=== PATIENT | female | born 1990 | race Caucasian/White ===

== ENCOUNTER 2018-03-20 13:29 | Emergency (ER) | payer MEDICAID ==
[~2018-03-20] VITALS: Ht 170.2 cm; Wt 72.9 kg
[~2018-03-20 13:29] MED LIST: ONDA8TAB9 PO
[2018-03-20] MEDS ORDERED: ketorolac trometh. 30mg/ml inj. IM ONE (14:10)
[2018-03-20 14:18] LABS: CLARITY,URINE SLIGHTLY CLOUDY (Clear); COLOR,URINE YELLOW (Yellow); GLUCOSE, URINE NEGATIVE (Neg); KETONES,URINE NEGATIVE (Neg); LEUKOCYTE ESTERASE ,URINE SMALL (Neg); NITRITES, URINE NEGATIVE (Neg); OCCULT BLOOD,URINE NEGATIVE (Neg); PROTEIN,URINE NEGATIVE (Neg); UROBILINOGEN,URINE 0.2 E.U/dL (0.2-1.0)
[2018-03-20 14:20] LABS: UA COLLECTION TYPE CLN CATCH MIDSTREAM; URINE HCG NEGATIVE (NEG)
[2018-03-20 14:25] LABS: BACTERIA,URINE FEW /HPF (Neg); RBC,URINE 0-2 /HPF (0-2); WBC,URINE 0-4 /HPF (0-4)
[2018-03-20 14:26] LABS: MUCUS STRANDS MODERATE /LPF (Neg); SQUAMOUS EPITHELIAL CELL,UR MODERATE /LPF (FEW)
[2018-03-20] MEDS ORDERED: CYCL-1 PO (15:41)
[2018-03-20 15:53] VITALS: BP 125/75
== END 2018-03-20 15:55 | disposition home or self-care (01) ==
LOC: ER 13:30
DX: M53.3 Sacrococcygeal disorders, not elsewhere classified (principal); M62.830 Muscle spasm of back; M54.5 Low back pain; M54.6 Pain in thoracic spine; Z87.442 Personal history of urinary calculi; Z88.2 Allergy status to sulfonamides; Z88.6 Allergy status to analgesic agent; Z88.8 Allergy status to other drugs, medicaments and biological substances; W01.190A Fall on same level from slipping, tripping and stumbling with subsequent striking against furniture, initial encounter; Y93.89 Activity, other specified; Y92.89 Other specified places as the place of occurrence of the external cause; Y99.9 Unspecified external cause status
CPT/HCPCS: 72100; 81001; 81025; 87088; 96372; 99285; J1885

== ENCOUNTER 2019-01-12 21:19 | Emergency (ER) | payer MEDICAID ==
[~2019-01-12] VITALS: Ht 170.2 cm; Wt 78.2 kg
[~2019-01-12 21:19] MED LIST changes: +CYCL-1 PO
[2019-01-12 22:18] VITALS: BP 126/78
[2019-01-12] MEDS ORDERED: acetaminophen 325mg tablet PO ONE (23:00)
[2019-01-12] MEDS ORDERED: ibuprofen tablet 400 MG TABLET PO ONE (23:00)
== END 2019-01-12 23:34 | disposition home or self-care (01) ==
LOC: ER 21:20
DX: M25.531 Pain in right wrist (principal); F41.9 Anxiety disorder, unspecified; Z87.442 Personal history of urinary calculi; Z88.2 Allergy status to sulfonamides; Z88.8 Allergy status to other drugs, medicaments and biological substances; Z79.899 Other long term (current) drug therapy
CPT/HCPCS: 29125; 73110; 99283

== ENCOUNTER 2020-12-15 11:35 | Day surgery (SDC) | payer MEDICAID ==
[2020-12-08 16:12] LABS: CLARITY,URINE SLIGHTLY CLOUDY (Clear); COLOR,URINE YELLOW (Yellow); GLUCOSE, URINE NEGATIVE (Neg); KETONES,URINE NEGATIVE (Neg); LEUKOCYTE ESTERASE ,URINE NEGATIVE (Neg); NITRITES, URINE NEGATIVE (Neg); OCCULT BLOOD,URINE TRACE-INTACT (Neg); PROTEIN,URINE NEGATIVE (Neg); UROBILINOGEN,URINE 0.2 E.U/dL (0.2-1.0)
[2020-12-08 16:18] LABS: MUCUS STRANDS MODERATE /LPF (Neg); SQUAMOUS EPITHELIAL CELL,UR MANY /LPF (FEW); UA COLLECTION TYPE CLN CATCH MIDSTREAM
[2020-12-08 16:19] LABS: BASOPHILS # (AUTO) 0.1 X10'3 (0-0.2); EOSINOPHILS # (AUTO) 0.2 X10'3 (0-0.9); MEAN CORPUSCULAR HEMOGLOBIN 30.1 PG (27.0-31.0); NEUTROPHILS # (AUTO) 3.6 X10'3 (1.8-7.7); PRE OP HEMATOCRIT 39.7 % (35.0-45.0)
[2020-12-08 16:19] LABS: BACTERIA,URINE 1+ /HPF (Neg); RBC,URINE 0-2 /HPF (0-2); WBC,URINE 0-4 /HPF (0-4)
[2020-12-08 16:20] LABS: EOSINOPHILS % (AUTO) 2.4 % (0-6); LYMPHOCYTES # (AUTO) 2.5 X10'3 (1.1-4.8); LYMPHOCYTES % (AUTO) 36.2 % (21-51); MEAN CORPUSCULAR HGB CONC 34.2 g/dL (33.0-36.5); MEAN PLATELET VOLUME 8.9 FL (7.4-10.4); MONOCYTES # (AUTO) 0.6 X10'3 (0-0.9); NEUTROPHILS % (AUTO) 51.4 % (42-75); PRE OP HEMOGLOBIN 13.6 g/dL (12.0-16.0); PRE OP PLATELET COUNT 304 X10'3 (140-440); RED BLOOD COUNT 4.51 X10'6 (4.20-5.60)
[2020-12-08 16:36] LABS: ALBUMIN/GLOBULIN RATIO 1.1 (1.1-1.5); ALKALINE PHOSPHATASE 70 IU/L (46-116); BLOOD UREA NITROGEN 11 MG/DL (7-18); BUN/CREATININE RATIO 17.5 (6.6-38.0); CALCIUM 8.5 MG/DL (8.5-10.1); CHLORIDE 105 MMOL/L (99-107); CREATININE 0.63 MG/DL (0.40-0.90); PRE OP ALT 15 U/L (30-65); PRE OP ANION GAP 10 (8-16); PRE OP AST 12 U/L (10-37); PRE OP BILIRUB, TOTAL 0.3 MG/DL (0.0-1.0); PRE OP GLUCOSE 89 MG/DL (70-104); PRE OP POTASSIUM 3.6 MMOL/L (3.4-5.1); PRE OP SODIUM 141 MMOL/L (135-145); TOTAL CARBON DIOXIDE 25.6 MMOL/L (24-32); TOTAL PROTEIN 7.8 G/DL (6.4-8.2); eGFR > 90 ML/MIN
[2020-12-08 16:52] LABS: HCG SERUM QL NEGATIVE
[2020-12-15] VITALS (9 sets, daily range): BP systolic 89–136; BP diastolic 52–98
[~2020-12-15] VITALS: Ht 170.2 cm; Wt 86.5 kg
[~2020-12-15 11:35] MED LIST changes: -CYCL-1 PO; +NO HOME MEDS; -ONDA8TAB9 PO; +ceFOXitin 2GM-NS 100mL ADDvant 100 ML IV ONE; +famotidine 20mg tablet PO ONE; +ringers solution, lacted 1,000 ML IV SCH
[2020-12-15] MEDS ORDERED: morphine 4 MG/ML inj SYRINge IV PRN ×2 (14:10→14:15)
[2020-12-15] MEDS ORDERED: proCHLORperazine 10 MG/2 ml inj IV PRN ×2 (14:10→14:15)
[2020-12-15] MEDS ORDERED: ondansetron/PF 4mg/2ml inj IV PRN ×2 (14:10→14:15)
[2020-12-15] MEDS ORDERED: ringers solution, lacted 1,000 ML IV SCH ×2 (14:10→14:15)
[2020-12-15] MEDS ORDERED: meperidine/PF 25mg/ml syringe IV PRN ×6 (14:10→14:15)
[2020-12-15] MEDS ORDERED: morphine 2 MG/ML inj. syringe IV PRN ×2 (14:10→14:15)
[2020-12-15] MEDS ORDERED: BUPIVAcaine/PF 2.5 mg/ml (0.25%) 30ml vial ONE (14:20)
[2020-12-15] MEDS ORDERED: midazolam 1 mg/ML 2ml injection ONE (14:52)
[2020-12-15] MEDS ORDERED: fentaNYL/PF 50MCG/1 ML 2ML syringe ONE (14:52)
[2020-12-15] MEDS ORDERED: glycopyrrolate 0.2mg/ml inj ONE (15:35)
[2020-12-15] MEDS ORDERED: ondansetron/PF 4mg/2ml inj ONE (15:35)
[2020-12-15] MEDS ORDERED: neostigmine methylsulfate 1 MG/ML 10ml vial ONE (15:35)
[2020-12-15] MEDS ORDERED: propofol inj 20 ML IV ONE (15:35)
[2020-12-15] MEDS ORDERED: LIDOcaine 2% (20mg/ml) 5ml vial ONE (15:35)
[2020-12-15] MEDS ORDERED: acetaminophen 1,000mg/100ml IV 100 ML IV ONE (15:35)
[2020-12-15] MEDS ORDERED: rocuronium 10mg/ml inj IV ONE (15:35)
[2020-12-15] MEDS ORDERED: dexamethasone sod phosphate 4mg/ml inj. ONE (15:35)
--- NOTE | 2020-12-15 15:52 | NUR ---
Received from OR via [facility], accompanied by Anesthesiologist DR ARTEAGA and report given by Anesthesiolgist. PT HAS 20G IV LEFT AC, WITH LR 100MLS/HR. PT REPROTS HAVING ANXIETY. NURSES HELPING TO COMFORT PT AT BEDSIDE. Addendum: 12/15/20 at 1635 by Beth Zhou RN RN Amended: Links added.
--- NOTE | 2020-12-15 17:15 | NUR ---
PT IV REMOVED JOSEPH [facility] PT DC'S HOME WITH WHEELCHAIR OUT TO THE PARKING LOT WITH ARC WELDING MACHINE OPERATOR. ALL DC INSTRUCTIONS REVIEWED WITIMUR PT, PT VERBALIZED UNDERSTANDING WITH NO FURTHER QUESTIONS AT THIS TIME. Addendum: 12/15/20 at 1716 by Beth Zhou RN, RN Amended: Links added.
== END 2020-12-15 17:02 | disposition home or self-care (01) ==
LOC: PAS 11:35
PROVIDERS: ATTEND Obstetrics & Gynecology Obstetrics
DX: Z30.2 Encounter for sterilization (principal); F41.9 Anxiety disorder, unspecified; G43.909 Migraine, unspecified, not intractable, without status migrainosus; Z88.2 Allergy status to sulfonamides; Z88.8 Allergy status to other drugs, medicaments and biological substances; Z79.899 Other long term (current) drug therapy; Z87.891 Personal history of nicotine dependence; Z20.822 Contact with and (suspected) exposure to COVID-19; Z83.3 Family history of diabetes mellitus; Z82.49 Family history of ischemic heart disease and other diseases of the circulatory system
CPT/HCPCS: 36415; 58671; 80053; 81001; 82948; 84703; 85025; 86885; 86900; 86901; A4264; J0131; J0694; J0780; J1100; J2001; J2175; J2250; J2270; J2405; J2704; J2710; J3010; J3490; J7120; U0003; U0005; A4618